=== PATIENT | male | born 1990 | race Caucasian/White ===

== ENCOUNTER 2024-11-28 10:16 | Outpatient (CLI) | payer OTHER, SELFPAY ==
[2024-11-28 10:38] LABS: Hematocrit 42.8 % (42.0-52.0); Hemoglobin 13.7 g/dL (14.0-18.0); Mean Corpuscular HGB Conc 32.0 g/dl (32-36); Mean Corpuscular Hemoglobin 27.3 pg (26-34); Mean Corpuscular Volume 85.4 fl (80-100); Platelet Count Result 249 k/mm3 (150-375); Red Blood Count 5.01 M/mm3 (4.6-6.20); White Blood Count 8.6 K/mm3 (4.5-10.0)
[2024-11-28 11:04] LABS: Add Urine Microscopic? YES; Appearance Urine Cloudy (Clear); Glucose Urine UA Negative (Negative); Leukocyte Esterase Ur 1+ LEU/UL (Negative); Need Manual Microscopic Reviewed; Nitrate Urine Negative (Negative); Non Pathogenic Casts 0-2; Specific Grav Ur 1.015 (1.001-1.035)
[2024-11-28 11:06] LABS: Alanine Aminotransferase 41 U/L (6-50); Albumin Level 4.5 g/dL (3.5-5.1); Alkaline Phosphatase 80 U/L (38-126); Anion Gap 7 mmol/L (4-12); Aspartate Amino Transferase 61 U/L (17-59); Bilirubin,Total 0.7 mg/dL (0.2-1.3); Blood Urea Nitrogen 18 mg/dL (9-20); Calcium 9.4 mg/dL (8.4-10.2); Carbon Dioxide 27 mmol/L (22-30); Chloride 102 mmol/L (98-107); Cholesterol 174 mg/dL (0-200); Estimated Glomerular Filt Rate > 60; Glucose 94 mg/dL (65-110); HDL Direct 53 mg/dL; Magnesium 2.4 mg/dL (1.6-2.3); Potassium 4.1 mmol/L (3.4-5.0); Sodium 136 mmol/L (137-145); Total Protein 7.8 g/dL (6.3-8.2); Triglycerides 57 mg/dL (<150)
--- OUTSIDE RECORDS SUMMARY | 2024-11-28 11:38 | XMS_ITS | Clinical Summary ---
Author Organization [facility] Address [address] [place] [id number] Care Team Providers Care Clipper And Turner Name Role Phone Caitie Dolan MD Primary Care Provider [phone] Medications No known medications Active Problems Problem Noted Date Diagnosed Date Tobacco dependence due to chewing tobacco 2022 Alcohol consumption binge drinking 03/10/2023 Family History Medical History Relation Comments Alcohol Abuse Mother Relation Status Comments Mother Social History Tobacco Use Types Packs/Day Years Used Date Smoking Tobacco: Every Day Cigarettes 0.3 0.5 Smokeless Tobacco: Never Tobacco Cessation:Ready to Q uit: No; Counseling Given: Yes Comments:Chewing tobacco Alcohol Use Standard Drinks/Week Comments Yes 16.7 (1 standard drink = 0.6 oz pure alcohol) PHQ-2 Answer Date Recorded Patient Health Questionnaire-2 Score 2 03/10/2023 Sex and Gender Information Value Date Recorded Sex Assigned at Not on file Legal Sex Male 11:20 PM INTERVENTIONIST Gender Identity Not on file Sexual Orientation Not on file Last Filed Vital Signs Vital Sign Reading Time Taken Comments Blood Pressure 142/80 03/10/2023 2:06 PM INTERVENTIONIST Pulse 82 03/10/2023 1:33 PM INTERVENTIONIST Temperature 36.7 C (98.1 F) 03/10/2023 1:33 PM INTERVENTIONIST Respiratory Rate 17 03/10/2023 1:33 PM INTERVENTIONIST Oxygen Saturation 97% 03/10/2023 1:33 PM INTERVENTIONIST Inhaled Oxygen Concentration - - Weight 95.9 kg (211 lb 6.4 oz) 03/10/2023 1:33 P M INTERVENTIONIST Height 182.9 cm (6') 03/10/2023 1:33 PM INTERVENTIONIST Body Mass Index 28.67 03/10/2023 1:33 PM INTERVENTIONIST Plan of Treatment Health Maintenance Due Date Last Done Comments Annual Physical 1993 DTaP, Tdap and Td Vaccines (6 - Tdap) 10/09/2005 10/08/2005, 07/09/1996, 10/16/1992, Additional history exists Hepatitis C 2008 Pneumococcal Vaccine: Pediatrics (0 to 5 Years) and At-Risk Patients (6 to 49 Years) (1 of 2 - PCV) 2009 HPV Vaccines (1 - 3-dose SCDM series) 2017 COVID-19 Vaccine (2 - season) 2023 03/30/2021 PHQ-2 (Physician [facility]) 03/28/2024 03/10/2023 Hepatitis B Vaccines Completed 09/21/2002, 11/22/2001, 09/15/2001 Meningococcal Vaccine Aged Out 10/27/2009 No gaby winter eligible based on patient's age to complete this topic Meningococcal B Vaccine Aged Out No l onger eligible based on patient's age to complete this topic RSV Immunizations Under 20 Months Aged Out No longer eligible based on patient's age to complete this topic Care Teams Clipper And Turner Relationship Specialty Start Date End Date Caitie Dolan MD [address] [place] [address] PCP - General FAMILY PRACTICE 03/10/23
--- OUTSIDE RECORDS SUMMARY | 2024-11-28 11:38 | XMS_ITS ---
Author Organization Unknown ENCOUNTERS Encounter Performer Location Date Diagnosis Diagnosis Status Outpatient [facility] [address] [place] [address] [id number] Outpatient HEALTH EXAM [facility] [address] [place] [address] [id number] *Note: Encounters from your own facility or health system may be excluded. Allergies, Adverse Reactions, Alerts Allergen Type Severity Identification Date Medications Name Date Quantity Days Supplied GPI Number
[2024-11-28 12:57] LABS: Thyroid Stimulating Hormone 2.050 uIU/mL (0.465-4.680)
[2024-12-06 13:08] LABS: Free Testosterone (Direct) 10.5 pg/mL (8.7-25.1)
== END 2024-11-28 10:17 | disposition home or self-care (01) ==
PROVIDERS: PCP Family Medicine; Visit Provider Family Medicine
DX: Z00.00 Encounter for general adult medical examination without abnormal findings (principal)
CPT/HCPCS: 36415; 80053; 80061; 81001; 82306; 83735; 84402; 84403; 84443; 85027

== ENCOUNTER 2024-12-15 17:30 | Emergency (ER) | payer OTHER, SELFPAY ==
--- NOTE | 2024-12-15 17:32 | ED.GENADULT ---
HPI - General Adult General Chief complaint: Upper Respiratory Infection Stated complaint: Sore throat, can't swallow Time Seen by Provider: 12/15/24 17:32 Source: patient Mode of arrival: ambulatory Limitations: no limitations History of Present Illness HPI narrative: 34-year-old male patient presents to [facility] with complaints of sore throat that started yesterday. Patient denies any fevers body aches or chills but states he has had some fatigue. Patient states he did have strep multiple times as a kid and had his tonsils removed. Patient states he has been taking Tylenol and ibuprofen for the pain. Related Data Home Medications ?Medication ?Instructions ?Recorded ?Confirmed ?Last Taken ?Type No Home Medications 08/27/24 12/15/24 Unknown History Allergies Allergy/AdvReac Type Severity Reaction Status Date / Time No Known Allergies Allergy Verified 12/15/24 17:38 Review of Systems Review of Systems: CONSTITUTIONAL: Denies fever, chills, or sweats. Positive fatigue EYES: Denies visual changes, redness, or discharge. ENT: Denies rhinorrhea, congestion, positive sore throat, denies otalgia. CARDIOVASCULAR: Denies chest pain, palpitations, or edema. RESPIRATORY: Denies cough or dyspnea. GASTROINTESTINAL: Denies abdominal pain, nausea, vomiting, or diarrhea. GENITOURINARY: Denies dysuria or hematuria. SKIN: Denies rash or itching. MUSCULOSKELETAL: Denies back pain, joint pain, or myalgia. NEUROLOGIC: Denies headache, numbness, or weakness. PSYCHIATRIC: Denies anxiety or depression. [facility] Surgical History Surgical History History of tonsillectomy Social History Social History Smoking status: Never smoker Smokeless tobacco user: chewing tobacco Alcohol intake: former Substance use: never Do You Feel Safe in your Home?: Yes Lack of Transportation: No Lack of Food: Never True Current Housing: I Have Housing Concerned About Future Housing: No Difficulty Paying Gas/Electric Bills: No Difficulty Paying for Meds: No Currently Unemployed: No Education: Bachelor's Degree Difficulty w/ Childcare or Family Care: No Comments At the time of my signature I agree with nursing past medical history, surgical, social, and family history. There is no relevant family history pertinent to the presenting complaint. Exam Narrative: GENERAL: Well-appearing, well-nourished, and in no acute distress. HEAD: Normocephalic, atraumatic. EYES: PERRLA and EOMI. ENT: Nares clear, no rhinorrhea or epistaxis. Mucous membranes moist. Posterior pharynx with no tonsillar enlargement, exudates or lesions present. No obvious exudates noted. Bilateral TMs are clear no erythema or foreign bodies the canal. NECK: Supple. No lymphadenopathy CHEST: Clear to auscultation. No respiratory distress. HEART: Regular rate and rhythm. No murmur heard. Normal peripheral pulses. ABDOMEN: Soft, nontender, nondistended, normal active bowel sounds. EXTREMITIES: Normal range of motion. No edema. SKIN: Warm, dry, no rash. NEURO: No focal deficits. Alert and oriented x3. Course Course Level of Care: Express Care Visit Reevaluation(s) Reevaluation #1: Re-evaluated patient notified him that his point of care testing today is negative. We will go ahead and send the throat swab to the lab for culture and if it does come back positive for strep we will call him in antibiotics at that time. Discussed with patient that he needs to be on top of his pain control and highly recommend alternating Tylenol and ibuprofen every 4 hours. Also recommended warm salt water gargles and hot tea with honey which could help although also soothe the throat. Patient verbalized understanding denies any other questions or concerns at this time. Date: 12/15/24 Time: 18:07 Vital Signs Vital signs: Vital Signs Temperature 36.9 C 12/15/24 17:38 Pulse Rate 70 12/15/24 17:38 Respiratory Rate 12/15/24 17:38 Blood Pressure 145/87 H 12/15/24 17:38 Pulse Oximetry 100 12/15/24 17:38 Oxygen Delivery Room Air 12/15/24 17:38 Temperature 36.9 C 12/15/24 17:38 Pulse Rate 70 12/15/24 17:38 Respiratory Rate 12/15/24 17:38 Blood Pressure 145/87 H 12/15/24 17:38 Pulse Oximetry 100 12/15/24 17:38 Oxygen Delivery Room Air 12/15/24 17:38 Vital signs reviewed. The patient has been informed that they may have pre-hypertension or Hypertension based on a BP reading in the department. I recommend that the patient call the primary care provider listed on their discharge instructions or a physician of their choice this week to arrange follow up for further evaluation of possible pre-hypertension or Hypertension Medical Decision Making MDM Narrative Medical decision making narrative: Plan of care for patient is to swab him today for influenza and COVID since he is complaining of the fatigue as well as strep throat since he is complaining of sore throat. Differential Diagnosis Differential Diagnosis: Differential diagnosis: Viral pharyngitis, pharyngitis, group A strep, infectious mononucleosis, gonococcal pharyngitis, exudative pharyngitis, oral candidiasis. Chronic allergies, postnasal drip, GERD, abscess formation, but glottitis, retropharyngeal abscess formation, or airway obstruction. Vital Signs Vital Signs: Vital Signs Temperature 36.9 C 12/15/24 17:38 Pulse Rate 70 12/15/24 17:38 Respiratory Rate 12/15/24 17:38 Blood Pressure 145/87 H 12/15/24 17:38 Pulse Oximetry 100 12/15/24 17:38 Oxygen Delivery Room Air 12/15/24 17:38 Temperature 36.9 C 12/15/24 17:38 Pulse Rate 70 12/15/24 17:38 Respiratory Rate 12/15/24 17:38 Blood Pressure 145/87 H 12/15/24 17:38 Pulse Oximetry 100 12/15/24 17:38 Oxygen Delivery Room Air 12/15/24 17:38 Critical Care Time Critical Care Time Critical Care Time: No Discharge Plan Discharge Clinical Impression: Pharyngitis Patient Disposition: Home Condition: Stable Instructions: Antibiotic Form, Pharyngitis (ED) Additional Instructions: A sore throat can be caused by an infection from a virus or bacteria. Sore throat can also be caused by postnasal drip, allergies, and exposure to smoke. A viral sore throat last 3-4 days and cannot be treated with antibiotics. One type of sore throat virus, infectious mononucleosis (mono), can last for 3 weeks and older children. The germs that cause these infections are contagious and can be spread by coughing or sharing drinks or utensils. Contact her primary care physician or go to the ER if: Your trouble breathing or swallowing because her throat is swollen or sore. You're drooling because it hurts too much to swallow. You're painful lump in your throat go away after 5 days. You're fever is higher than 10 2??F or last longer than 3 days. You have confusion. You are blood in your throat. You're sore throat should feel better within 3-5 days without treatment if it is caused by virus. You may need the following: Ibuprofen or Tylenol as needed for pain or fever Gargle warm salt water Drink more liquids, cold or warm drinks may help soothe her throat. Humidifier in your room. Cough drops, ice, soft foods, or popsicles may help soothe her throat. A spoonful of honey could help with inflammation and soothe her throat. Wash her hands with soap and water, do not share food or drinks, throat away her toothbrush after 72 hours. Patient Language: Tajik Prescriptions: No Action No Home Medications Follow-up/Referrals: Melchor Simeon MD [Primary Care Provider, [facility]] Time of Disposition: 18:05
[2024-12-15 17:38] VITALS: BP 145/87; PULSE 70; RESP 20; TEMP 36.9; O2SAT 100
[2024-12-15] MEDS: IBUPROFEN 400 MG TABLET 800 MG PO (17:54)
[2024-12-15 18:06] LABS: EDCOVIDSCREEN Negative (Negative); EDINFLUASCREEN Negative (Negative); EDINFLUBSCREEN Negative (Negative); EDSTREPNEGPOS1 Negative (Negative)
== END 2024-12-15 18:10 | disposition home or self-care (01) ==
PROVIDERS: Emergency Provider Nurse Practitioner Family; PCP Family Medicine
DX: J02.9 Acute pharyngitis, unspecified (principal); Z20.822 Contact with and (suspected) exposure to COVID-19; F17.220 Nicotine dependence, chewing tobacco, uncomplicated
CPT/HCPCS: 87081; 87426; 87804; 87880; 99213; A9270; G0463